=== PATIENT | female | born 1995 | race American Indian/Alaskan Native ===

== ENCOUNTER 2016-10-16 06:58 | Emergency (ER) | payer SELFPAY ==
[2016-10-16 07:54] VITALS: BP 149/97
[2016-10-16 09:03] LABS: Bilirubin,Urine NEG (Negative); Blood,Urine NEG (Negative); Ketones,Urine NEG (Negative); Leukocyte Esterase,Urine NEG (Negative); Mucus,Urine FEW /HPF; Nitrite,Urine NEG (Negative); Protein,Urine <15 mg/dL mg/dL (Negative); Urobilinogen,Urine < 2.0 mg/dL (<2.0)
--- NOTE | 2016-10-16 10:04 | Emergency Department Report ---
HPI - General Chief Complaint: Pain General Time Seen by Provider: 10/16/16 10:00 - HPI HPI: 21-year-old obese female comes in with complaint of sore throat and runny nose since yesterday. Patient also complains of pain from the waist down starting this morning. Lower back and lower leg pain. She denies any dysuria no hematuria she didn't complains of frequency and urgency with urination. She denies any nausea vomiting denies any fever. She does report that the last time she felt like that she was under stress. 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 Patient has tried no xzzi-eqt-bfwydom medication. ED Past Medical Hx - Past Medical History Hx Hypertension: Yes (NO MEDS) Hx GERD: Yes - Surgical History Past Surgical History?: No - Social History Smoking Status: Current Every Day Smoker Substance Use Type: Alcohol, Marijuana - Medications Home Medications: Home Medications Medication Instructions Recorded Confirmed Last Taken Type Ibuprofen [Motrin 800 MG tab] 800 mg PO Q8HR #30 tablet 10/16/16 Unknown Rx ED Review of Systems ROS: Stated complaint: BODY PAIN Other details as noted in HPI Physical Exam - Physical Exam Vital Signs: Vital Signs 10/16/16 07:50 Temperature 98.4 F Pulse Rate 83 Respiratory 16 Rate Blood Pressure 149/97 O2 Sat by Pulse 100 Oximetry ED Course Vital Signs 10/16/16 07:50 Temperature 98.4 F Pulse Rate 83 Respiratory 16 Rate Blood Pressure 149/97 O2 Sat by Pulse 100 Oximetry - Reevaluation(s) Reevaluation #1: 10/16/16 10:57 She reports that her pain is improved much. Critical care attestation.: If time is entered above; I have spent that time in minutes in the direct care of this critically ill patient, excluding procedure time. ED Disposition Clinical Impression: Sore throat (viral), Leg pain, bilateral, Obesity (BMI 30.0-34.9), Tobacco abuse, Tobacco abuse counseling Disposition: DISCHARGED TO HOME OR SELFCARE Is pt being admited?: No Does the pt Need Aspirin: No Condition: Stable Instructions: Analgesic/Antihistamine/Antitussive (By mouth), How to Stop Smoking (ED) Additional Instructions: Discussed the patient did take the Motrin as prescribed. For body aches and sore throat. Also discussed the patient to stop smoking. Encourage patient to walk more exercise at least 30 minutes 3 times a week. Prescriptions: Ibuprofen [Motrin 800 MG tab] 800 mg PO Q8HR #30 tablet Referrals: PRIMARY CARE, [Primary Care Provider] - 3-5 Days Forms: Work/School Release Form(ED)
[2016-10-16] MEDS: MOTRIN PO ONE (10:09)
== END 2016-10-16 11:03 | disposition home or self-care (01) ==
LOC: ED 06:58
DX: J02.8 Acute pharyngitis due to other specified organisms (principal); E66.9 Obesity, unspecified; M79.605 Pain in left leg; M79.604 Pain in right leg; I10 Essential (primary) hypertension; K21.9 Gastro-esophageal reflux disease without esophagitis; F17.210 Nicotine dependence, cigarettes, uncomplicated; F12.90 Cannabis use, unspecified, uncomplicated; Z68.34 Body mass index [BMI] 34.0-34.9, adult
CPT/HCPCS: 81001; 81025; 99283

== ENCOUNTER 2018-02-19 17:31 | Emergency (ER) | payer SELFPAY ==
[2018-02-19] MEDS ORDERED: TYLENOL PO ONE (22:03)
[2018-02-19 22:10] VITALS: BP 146/95
--- NOTE | 2018-02-20 02:33 | XRay Report ---
FINAL REPORT EXAM: XR CHEST ROUTINE 2V HISTORY: chest pain TECHNIQUE: PA and lateral views of the chest were obtained. PRIORS: None. FINDINGS: There are no focal consolidations to suggest pneumonia. No large pleural effusion. No pneumothorax. Cardiac silhouette and mediastinal structures are unremarkable. No acute osseous abnormality identified. IMPRESSION: No radiographic evidence of acute cardiopulmonary disease.
--- NOTE | 2018-02-20 03:02 | Emergency Department Report ---
- General Chief Complaint: Chest Pain Stated Complaint: N/V Time Seen by Provider: 02/20/18 01:18 Source: patient Mode of arrival: Ambulatory Limitations: No Limitations - History of Present Illness Initial Comments: Patient presents with chest pain cough for 3 weeks symptoms exacerbated by environmental stimuli Patient has history of bronchitis thyroid not taking her arthritis medicines at this time there is no fever or chills no nausea vomiting MD Complaint: cough, sore throat, rhinorrhea, nasal congestion, sinus pain Onset/Timin -: week(s) Severity: moderate Severity scale (0 -10): 4 Quality: aching Consistency: constant Improves With: nothing Worsens With: activity Context: sick contacts Associated Symptoms: fever, chills, cough, chest pain, rash - Related Data Previous Rx's Medication Instructions Recorded Last Taken Type ALBUTEROL NEB's [Proventil 0.083% 2.5 mg IH TID PRN #30 neb 02/20/18 Unknown Rx NEBS] Ibuprofen [Motrin 800 MG tab] 800 mg PO Q8HR #30 tablet 02/20/18 Unknown Rx predniSONE [Deltasone] 40 mg PO QDAY #10 tab 02/20/18 Unknown Rx Allergies Allergy/AdvReac Type Severity Reaction Status Date / Time lactose AdvReac ABD PAIN Verified 02/19/18 17:45 ED Review of Systems ROS: Stated complaint: N/V Other details as noted in HPI Constitutional: denies: chills, fever Eyes: denies: eye pain, eye discharge, vision change ENT: ear pain, dental pain, congestion Respiratory: denies: cough, shortness of breath, wheezing Cardiovascular: denies: chest pain, palpitations Endocrine: no symptoms reported Gastrointestinal: denies: abdominal pain, nausea, diarrhea, constipation, hematemesis, hematochezia Genitourinary: urgency Musculoskeletal: denies: back pain, joint swelling, arthralgia Skin: denies: rash, lesions Neurological: denies: headache, weakness, paresthesias Psychiatric: as per HPI. denies: anxiety, depression Hematological/Lymphatic: denies: easy bleeding, easy bruising ED Past Medical Hx - Past Medical History Hx Hypertension: Yes (NO MEDS) Hx GERD: Yes - Surgical History Past Surgical History?: No - Social History Smoking Status: Never Smoker Substance Use Type: None - Medications Home Medications: Home Medications Medication Instructions Recorded Confirmed Last Taken Type ALBUTEROL NEB's [Proventil 0.083% 2.5 mg IH TID PRN #30 neb 02/20/18 Unknown Rx NEBS] Ibuprofen [Motrin 800 MG tab] 800 mg PO Q8HR #30 tablet 02/20/18 Unknown Rx predniSONE [Deltasone] 40 mg PO QDAY #10 tab 02/20/18 Unknown Rx ED Physical Exam - General Limitations: No Limitations General appearance: alert, in no apparent distress - Head Head exam: Present: atraumatic, normocephalic - Eye Eye exam: Present: normal appearance, PERRL Pupils: Present: normal accommodation - ENT ENT exam: Present: normal exam, normal orophraynx, mucous membranes moist - Neck Neck exam: Present: normal inspection (25) - Respiratory Respiratory exam: Present: normal lung sounds bilaterally (he), wheezes. Absent : respiratory distress - Cardiovascular Cardiovascular Exam: Present: regular rate, normal rhythm, normal heart sounds - GI/Abdominal GI/Abdominal exam: Present: soft, normal bowel sounds - Rectal Rectal exam: Present: deferred - External exam: Present: erythema Speculum exam: Present: normal speculum exam - Extremities Exam Extremities exam: Present: normal inspection, full ROM, tenderness, normal capillary refill. Absent: pedal edema, joint swelling - Back Exam Back exam: Present: normal inspection, full ROM, muscle spasm, vertebral tenderness. Absent: tenderness, CVA tenderness (R), CVA tenderness (L), paraspinal tenderness - Neurological Exam Neurological exam: Present: alert, oriented X3, CN II-XII intact, normal gait, reflexes normal - Psychiatric Psychiatric exam: Present: normal affect, normal mood - Skin Skin exam: Present: warm, dry, intact, normal color. Absent: rash ED Course Vital Signs 02/19/18 02/19/18 17:45 22:09 Temperature 98.9 F 99.3 F Pulse Rate 84 80 Respiratory 18 20 Rate Blood Pressure 153/100 Blood Pressure 146/95 [Left] O2 Sat by Pulse 99 99 Oximetry ED Medical Decision Making - Radiology Data Radiology results: pending, report reviewed Infiltrate no opacities - Medical Decision Making This is a bronchitis and AOM will tx for same pt will follow up Critical care attestation.: If time is entered above; I have spent that time in minutes in the direct care of this critically ill patient, excluding procedure time. ED Disposition Clinical Impression: Bronchitis Disposition: DC-01 TO HOME OR SELFCARE Is pt being admited?: No Does the pt Need Aspirin: No Condition: Good Instructions: Acute Bronchitis (ED) Prescriptions: ALBUTEROL NEB's [Proventil 0.083% NEBS] 2.5 mg IH TID PRN #30 neb PRN Reason: Wheezing Ibuprofen [Motrin 800 MG tab] 800 mg PO Q8HR #30 tablet predniSONE [Deltasone] 40 mg PO QDAY #10 tab Referrals: PRIMARY CARE, [Primary Care Provider] - 3-5 Days Forms: Work/School Release Form(ED) Time of Disposition: 03:13
== END 2018-02-20 01:19 | disposition home or self-care (01) ==
LOC: ED 17:31
DX: J40 Bronchitis, not specified as acute or chronic (principal); I10 Essential (primary) hypertension; K21.9 Gastro-esophageal reflux disease without esophagitis; Z91.09 Other allergy status, other than to drugs and biological substances
CPT/HCPCS: 71046; 93005; 93010; 99283

== ENCOUNTER 2019-06-12 16:17 | Emergency (ER) | payer OTHER ==
--- NOTE | 2019-06-12 20:00 | Event Note ---
ED Screening Note ED Screening Note: lower abd pain discomfort that began this morning +urgency no dysuria no bleeding no vomiting no diarrhea no fever PMHx none no allergies to meds LNMP: 04/20/19 states she is currently 7 weeks , states she took urine preg test has not seen an OB /P:0/A:1 This initial assessment/diagnostic orders/clinical plan/treatment(s) is/are subject to change based on patients health status, clinical progression and re- assessment by fellow clinical providers in the ED. Further treatment and workup at subsequent clinical providers discretion. Patient/guardian urged not to elope from the ED as their condition may be serious if not clinically assessed and managed. Initial orders include: labs, UA, US
[2019-06-12 20:48] LABS: Basophils # (Auto) 0.1 K/mm3 (0.0-0.1); Basophils % (Auto) 0.6 % (0.0-1.8); Eosinophils # (Auto) 0.2 K/mm3 (0.0-0.4); Eosinophils % (Auto) 1.9 % (0.0-4.3); Hematocrit 35.3 % (30.3-42.9); Hemoglobin 11.7 gm/dl (10.1-14.3); Lymphocytes # (Auto) 2.8 K/mm3 (1.2-5.4); Lymphocytes % (Auto) 30.2 % (13.4-35.0); Mean Corpuscular HGB Conc 33 % (30-34); Mean Corpuscular Volume 84 fl (79-97); Monocytes # (Auto) 0.7 K/mm3 (0.0-0.8); Monocytes % (Auto) 7.1 % (0.0-7.3); Platelet Count 307 K/mm3 (140-440); Red Blood Count 4.23 M/mm3 (3.65-5.03); Red Cell Distribution Width 14.9 % (13.2-15.2)
[2019-06-12 21:14] LABS: Bilirubin,Urine NEG (Negative); Blood,Urine NEG (Negative); Color,Urine Yellow (Yellow); Mucus,Urine 3+ /HPF; Protein,Urine <15 mg/dL mg/dL (Negative)
--- NOTE | 2019-06-12 22:05 | Ultrasound Report ---
US OB <= 14 weeks fetus, US OB transvaginal INDICATION / CLINICAL INFORMATION: 7 weeks , abd pain. COMPARISON: None available. FINDINGS: Transabdominal and transvaginal imaging was performed. Intrauterine gestational sac is seen with pole and yolk sac. [place]-rump length is 8.7 mm, 6 wee ks, 6 days. heart rate is 133. Right ovary not visualized. Left ovary is unremarkable. No free fluid is seen in the pelvis. IMPRESSION: 1. Single viable intrauterine with sonographic gestational age of 6 weeks, 6 days. Signer Name: Eduardo Hayes MD Signed: 06/12/2019 10:01 PM Workstation Name: [id number]
--- NOTE | 2019-06-12 22:07 | Emergency Department Report ---
ED Female HPI - General Chief complaint: Abdominal Pain Stated complaint: 7WKS PREG/ABD PAIN Time Seen by Provider: 06/12/19 19:58 Source: patient Mode of arrival: Ambulatory Limitations: No Limitations - History of Present Illness Initial comments: lower abd pain discomfort that began this morning. No pain now. +urgency no dysuria no bleeding no vomiting no diarrhea no fever PMHx none no allergies to meds LNMP: 04/20/19 states she is currently 7 weeks , states she took urine preg test has not seen an OB /P:0/A:1 -: This morning Location: suprapubic, other (epigastric) Severity: mild Quality: sharp Consistency: intermittent Improves with: none Worsens with: none Are you Now?: Yes Last Menstrual Period: 04/20/19 EDC: 01/25/20 Associated Symptoms: denies other symptoms - Related Data Sexually active: Yes : 2 Para: 0 A: 1 Previous Rx's Medication Instructions Recorded Last Taken Type ALBUTEROL NEB's [Proventil 0.083% 2.5 mg IH TID PRN #30 neb 02/20/18 Unknown Rx NEBS] Ibuprofen [Motrin 800 MG tab] 800 mg PO Q8HR #30 tablet 02/20/18 Unknown Rx predniSONE [Deltasone] 40 mg PO QDAY #10 tab 02/20/18 Unknown Rx Vit-Fe Fumar-FA [ 1 tab PO QDAY #45 tablet 06/12/19 Unknown Rx Vitamin] Allergies Allergy/AdvReac Type Severity Reaction Status Date / Time lactose AdvReac ABD PAIN Verified 02/19/18 17:45 ED Review of Systems ROS: Stated complaint: 7WKS PREG/ABD PAIN Other details as noted in HPI ED Past Medical Hx - Past Medical History Previous Medical History?: Yes Hx Hypertension: Yes (NO MEDS) Hx GERD: Yes - Surgical History Past Surgical History?: Yes - Social History Smoking Status: Never Smoker Substance Use Type: None - Medications Home Medications: Home Medications Medication Instructions Recorded Confirmed Last Taken Type ALBUTEROL NEB's [Proventil 0.083% 2.5 mg IH TID PRN #30 neb 02/20/18 Unknown Rx NEBS] Ibuprofen [Motrin 800 MG tab] 800 mg PO Q8HR #30 tablet 02/20/18 Unknown Rx predniSONE [Deltasone] 40 mg PO QDAY #10 tab 02/20/18 Unknown Rx Vit-Fe Fumar-FA [ 1 tab PO QDAY #45 tablet 06/12/19 Unknown Rx Vitamin] ED Physical Exam - General Limitations: No Limitations General appearance: alert, in no apparent distress - Head Head exam: Present: atraumatic, normocephalic - Eye Eye exam: Present: normal appearance - ENT ENT exam: Present: mucous membranes moist - Neck Neck exam: Present: normal inspection, full ROM - Respiratory Respiratory exam: Present: normal lung sounds bilaterally. Absent: respiratory distress - Cardiovascular Cardiovascular Exam: Present: regular rate, normal rhythm. Absent: systolic murmur, diastolic murmur, rubs, gallop - GI/Abdominal GI/Abdominal exam: Present: soft, normal bowel sounds. Absent: distended, tenderness, guarding, rebound - Extremities Exam Extremities exam: Present: normal inspection - Back Exam Back exam: Present: normal inspection - Neurological Exam Neurological exam: Present: alert, oriented X3, normal gait - Psychiatric Psychiatric exam: Present: normal affect, normal mood - Skin Skin exam: Present: warm, dry, intact, normal color. Absent: rash ED Course Vital Signs 06/12/19 06/12/19 17:25 17:28 Temperature 98.5 F 98.5 F Pulse Rate 93 H 93 H Respiratory 16 16 Rate Blood Pressure 133/72 [Right] O2 Sat by Pulse 100 100 Oximetry ED Medical Decision Making - Lab Data Result diagrams: 06/12/19 20:26 - Medical Decision Making lower abd pain discomfort that began this morning. No pain now. +urgency no dysuria no bleeding no vomiting no diarrhea no fever PMHx none no allergies to meds LNMP: 04/20/19 states she is currently 7 weeks , states she took urine preg test has not seen an OB /P:0/A:1 Patient currently has no abdominal pain. Patient's ultrasound shows she 6 weeks and 6 days. Patient has a negative physical examination. Patient will be discharged home on vitamins to take daily. Instructed patient she can only take Tylenol for pain management. Instructed the patient to increase her fluid intake and follow up with a [facility] I have listed several below for her convenience. Critical care attestation.: If time is entered above; I have spent that time in minutes in the direct care of this critically ill patient, excluding procedure time. ED Disposition Clinical Impression: Abdominal pain Qualifiers: Abdominal location: epigastric Qualified Code(s): R10.13 - Epigastric pain Qualifiers: Weeks of gestation: less than 8 weeks Qualified Code(s): Z3A.01 - Less than 8 weeks gestation of Disposition: DC- TO HOME OR SELFCARE Is pt being admited?: No Does the pt Need Aspirin: No Condition: Stable Instructions: Abdominal Pain (ED) Additional Instructions: Ultrasound shows an approximate 6 weeks and 6 days . Please take vitamins daily as prescribed. Only pain medication need can take at this time is Tylenol. Please follow up with her OB provider I have listed several below for your convenience. Prescriptions: Vit-Fe Fumar-FA [ Vitamin] 1 tab PO QDAY #45 tablet Referrals: [facility] [Provider Group] - 3-5 Days [facility] [Provider Group] - 3-5 Days [facility] [place] [Provider Group] - 3-5 Days Forms: Work/School Release Form(ED)
[2019-06-12 22:33] VITALS: BP 123/80
== END 2019-06-12 22:37 | disposition home or self-care (01) ==
LOC: ED 16:17
DX: R10.13 Epigastric pain (principal); O26.891 Other specified pregnancy related conditions, first trimester; R39.15 Urgency of urination; Z3A.01 Less than 8 weeks gestation of pregnancy
CPT/HCPCS: 36415; 76801; 76817; 81001; 84702; 85025; 86900; 86901; 99284

== ENCOUNTER 2019-07-07 12:16 | Emergency (ER) | payer MEDICAID, OTHER ==
[2019-07-07 12:30] VITALS: BP 148/88
[2019-07-07 16:14] LABS: Basophils # (Auto) 0.1 K/mm3 (0.0-0.1); Basophils % (Auto) 0.8 % (0.0-1.8); Eosinophils # (Auto) 0.2 K/mm3 (0.0-0.4); Eosinophils % (Auto) 2.2 % (0.0-4.3); Hematocrit 37.3 % (30.3-42.9); Hemoglobin 12.2 gm/dl (10.1-14.3); Lymphocytes # (Auto) 2.5 K/mm3 (1.2-5.4); Lymphocytes % (Auto) 30.5 % (13.4-35.0); Mean Corpuscular HGB Conc 33 % (30-34); Mean Corpuscular Volume 84 fl (79-97); Monocytes # (Auto) 0.7 K/mm3 (0.0-0.8); Monocytes % (Auto) 8.7 % (0.0-7.3); Platelet Count 362 K/mm3 (140-440); Red Blood Count 4.45 M/mm3 (3.65-5.03); Red Cell Distribution Width 15.3 % (13.2-15.2)
[2019-07-07 16:35] LABS: BUN/Creatinine Ratio 12; Blood Urea Nitrogen 6 mg/dL (7-17); Calcium 10.2 mg/dL (8.4-10.2); Hemolysis Index 7
--- NOTE | 2019-07-07 16:44 | Emergency Department Report ---
ED HPI - General Chief complaint: Abdominal Pain Stated complaint: 10 WKS /BLEEDING/PAIN Time Seen by Provider: 07/07/19 15:39 Source: patient Mode of arrival: Ambulatory Limitations: No Limitations - History of Present Illness Initial comments: This pleasant 24-year-old A1 L0 female presents the emergency department approximately 10 weeks with a chief complaint of vaginal bleeding that started this morning. She states she wiped and saw 2 small blood clots. She states she's been having some brown spotting since. She reported initially having a little bit of abdominal cramping this morning however this has also r esolved. She has an [facility]IMMER MACHINE OPERATOR appointment tomorrow at [facility] She denies any associated fevers, chills, night sweats, headache, dizziness, blurry vision, nausea, vomiting, diarrhea, chest pain, shortness of breath or any other associated symptoms. She has past medical history acid reflux lactose intolerance. Current medications include vitamins, she denies any allergies to medications, denies any previous surgeries. - Related Data Previous Rx's Medication Instructions Recorded Last Taken Type ALBUTEROL NEB's [Proventil 0.083% 2.5 mg IH TID PRN #30 neb 02/20/18 Unknown Rx NEBS] Ibuprofen [Motrin 800 MG tab] 800 mg PO Q8HR #30 tablet 02/20/18 Unknown Rx predniSONE [Deltasone] 40 mg PO QDAY #10 tab 02/20/18 Unknown Rx Vit-Fe Fumar-FA [ 1 tab PO QDAY #45 tablet 06/12/19 Unknown Rx Vitamin] Allergies Allergy/AdvReac Type Severity Reaction Status Date / Time lactose AdvReac ABD PAIN Verified 02/19/18 17:45 ED Review of Systems ROS: Stated complaint: 10 WKS /BLEEDING/PAIN Other details as noted in HPI Comment: All other systems reviewed and negative Constitutional: denies: chills, fever Eyes: denies: eye pain, eye discharge, vision change ENT: denies: ear pain, throat pain Respiratory: denies: cough, shortness of breath, wheezing Cardiovascular: denies: chest pain, palpitations Endocrine: no symptoms reported Gastrointestinal: as per HPI, abdominal pain. denies: nausea, diarrhea Genitourinary: abnormal menses. denies: urgency, dysuria, discharge Musculoskeletal: denies: back pain, joint swelling, arthralgia Skin: denies: rash, lesions Neurological: denies: headache, weakness, paresthesias Psychiatric: denies: anxiety, depression Hematological/Lymphatic: denies: easy bleeding, easy bruising ED Past Medical Hx - Past Medical History Previous Medical History?: No Hx Hypertension: Yes (NO MEDS) Hx GERD: Yes - Surgical History Past Surgical History?: No - Social History Smoking Status: Never Smoker Substance Use Type: None - Medications Home Medications: Home Medications Medication Instructions Recorded Confirmed Last Taken Type ALBUTEROL NEB's [Proventil 0.083% 2.5 mg IH TID PRN #30 neb 02/20/18 Unknown Rx NEBS] Ibuprofen [Motrin 800 MG tab] 800 mg PO Q8HR #30 tablet 02/20/18 Unknown Rx predniSONE [Deltasone] 40 mg PO QDAY #10 tab 02/20/18 Unknown Rx Vit-Fe Fumar-FA [ 1 tab PO QDAY #45 tablet 06/12/19 Unknown Rx Vitamin] ED Physical Exam - General Limitations: No Limitations General appearance: alert, in no apparent distress - Head Head exam: Present: atraumatic, normocephalic - Eye Eye exam: Present: normal appearance, PERRL, EOMI Pupils: Present: normal accommodation - ENT ENT exam: Present: normal exam, normal orophraynx, mucous membranes moist - Neck Neck exam: Present: normal inspection, full ROM. Absent: tenderness, meningismus - Respiratory Respiratory exam: Present: normal lung sounds bilaterally. Absent: respiratory distress, wheezes, rhonchi, stridor - Cardiovascular Cardiovascular Exam: Present: regular rate, normal rhythm, normal heart sounds. Absent: systolic murmur, diastolic murmur, rubs, gallop - GI/Abdominal GI/Abdominal exam: Present: soft, normal bowel sounds. Absent: distended, tenderness, guarding, rebound, rigid - Extremities Exam Extremities exam: Present: normal inspection, full ROM. Absent: tenderness, normal capillary refill - Back Exam Back exam: Present: normal inspection, full ROM. Absent: tenderness, CVA tenderness (R), CVA tenderness (L) - Neurological Exam Neurological exam: Present: alert, oriented X3, CN II-XII intact - Psychiatric Psychiatric exam: Present: normal affect, normal mood - Skin Skin exam: Present: warm, dry, intact, normal color. Absent: rash ED Course Vital Signs 07/07/19 12:22 Temperature 98.3 F Pulse Rate 96 H Respiratory 16 Rate Blood Pressure 148/88 O2 Sat by Pulse 93 Oximetry ED Medical Decision Making - Lab Data Result diagrams: 07/07/19 15:53 07/07/19 15:53 Lab Results 07/07/19 07/07/19 07/07/19 Range/Units 15:53 15:53 15:53 WBC 8.2 (4.5-11.0) K/mm3 RBC 4.45 (3.65-5.03) M/mm3 Hgb 12.2 (10.1-14.3) gm/dl Hct 37.3 (30.3-42.9) % MCV 84 (79-97) fl MCH 28 (28-32) pg MCHC 33 (30-34) % RDW 15.3 H (13.2-15.2) % Plt Count 362 (140-440) K/mm3 Lymph % (Auto) 30.5 (13.4-35.0) % Daw[place] % (Auto) 8.7 H (0.0-7.3) % Eos % (Auto) 2.2 (0.0-4.3) % Baso % (Auto) 0.8 (0.0-1.8) % Lymph # 2.5 (1.2-5.4) K/mm3 Dawes # 0.7 (0.0-0.8) K/mm3 Eos # 0.2 (0.0-0.4) K/mm3 Baso # 0.1 (0.0-0.1) K/mm3 Seg Neutrophils % 57.8 (40.0-70.0) % Seg Neutrophils # 4.8 (1.8-7.7) K/mm3 Sodium 134 L (137-145) mmol/L Potassium 3.5 L (3.6-5.0) mmol/L Chloride 98.6 (98-107) mmol/L Carbon Dioxide 20 L (22-30) mmol/L Anion Gap 19 mmol/L BUN 6 L (7-17) mg/dL Creatinine 0.5 L (0.7-1.2) mg/dL Estimated GFR > 60 ml/min BUN/Creatinine Ratio 12 % Glucose 92 (65-100) mg/dL Calcium 10.2 (8.4-10.2) mg/dL HCG, Quant (0-4) mIU/mL Blood Type O POSITIVE Ord Rhogam Gestat Weeks Rh pos WEEKS 07/07/19 Range/Units 15:53 WBC (4.5-11.0) K/mm3 RBC (3.65-5.03) M/mm3 Hgb (10.1-14.3) gm/dl Hct (30.3-42.9) % MCV (79-97) fl MCH (28-32) pg MCHC (30-34) % RDW (13.2-15.2) % Plt Count (140-440) K/mm3 Lymph % (Auto) (13.4-35.0) % Dawes % (Auto) (0.0-7.3) % Eos % (Auto) (0.0-4.3) % Baso % (Auto) (0.0-1.8) % Lymph # (1.2-5.4) K/mm3 Dawes # (0.0-0.8) K/mm3 Eos # (0.0-0.4) K/mm3 Baso # (0.0-0.1) K/mm3 Seg Neutrophils % (40.0-70.0) % Seg Neutrophils # (1.8-7.7) K/mm3 Sodium (137-145) mmol/L Potassium (3.6-5.0) mmol/L Chloride (98-107) mmol/L Carbon Dioxide (22-30) mmol/L Anion Gap mmol/L BUN (7-17) mg/dL Creatinine (0.7-1.2) mg/dL Estimated GFR ml/min BUN/Creatinine Ratio % Glucose (65-100) mg/dL Calcium (8.4-10.2) mg/dL HCG, Quant 40204 H (0-4) mIU/mL Blood Type Ord Rhogam Gestat Weeks WEEKS - Radiology Data Radiology results: report reviewed Ultrasound Report Signed Patient: VICTOR M BERNSTEIN MR#: [id number] : 1995 Acct:[id number] Age/Sex: 24 / F ADM Date: 07/07/19 Loc: ED Attending Dr: Ordering Physician: RYLIE CAROLINA Date of Service: 07/07/19 Procedure(s): US OB transvaginal Accession Number(s): [id number] cc: RYLIE CAROLINA ULTRASOUND OBSTETRIC INDICATION: 10 weeks with vaginal bleeding. TECHNIQUE: Transabdominal and Transvaginal. COMPARISON: OB ultrasound from 06/12/2019. FINDINGS: GESTATIONAL SAC: Well-defined oval shape and intrauterine in location. YOLK SAC: No significant abnormality. EMBRYO/FETUS: No significant abnormality. - [place]-Rump Length = 2.66 cm = 10 weeks, 0 day(s). - Heart Rate = 168 beats per minute. ADNEXA: No significant abnormality of the right ovary. The left ovary is obscured. FREE FLUID: None. ADDITIONAL FINDINGS: None. IMPRESSION: 1. Single, living intrauterine with estimated sonographic age of 10 weeks, 0 day(s). 2. No acute abnormality of the pelvis. Signer Name: Arnoldo Ramirez MD Signed: 07/07/2019 5:42 PM Workstation Name: [id number] Transcribed By: JAZ Dictated By: Arnoldo Ramirez MD Electronically Authenticated By: Arnoldo Ramirez MD Signed Date/Time: 07/07/19 7832 - Medical Decision Making Patient nontoxic in no acute distress. Vitals are stable. She is hemodynamically stable. HCG is elevated in ultrasound shows a viable intrauterine with no complications. This rules out ectopic . Patient had a benign abdominal exam and again labs were normal. I will discharge in stable condition with outpatient TRIMMER MACHINE OPERATOR follow-up which is tomorrow. She was instructed to return emergently changing worsening symptoms. Recommend continuing vitamins and recommended pelvic rest, nothing in the vagina, no sex no tampons, and no physical activity until cleared by the TRIMMER MACHINE OPERATOR. She was understanding of the diagnosis, treatment plan and follow-up instructions in all of her questions were answered. - Differential Diagnosis ectopic, threatened misscarriage, UTI Critical care attestation.: If time is entered above; I have spent that time in minutes in the direct care of this critically ill patient, excluding procedure time. ED Disposition Clinical Impression: Threatened miscarriage Disposition: DC-01 TO HOME OR SELFCARE Is pt being admited?: No Condition: Stable Instructions: Threatened Miscarriage (ED) Referrals: PRIMARY CARE, [Primary Care Provider] - 3-5 Days Forms: Work/School Release Form(ED) Time of Disposition: 19:29
--- NOTE | 2019-07-07 17:46 | Ultrasound Report ---
ULTRASOUND OBSTETRIC INDICATION: 10 weeks with vaginal bleeding. TECHNIQUE: Transabdominal and Transvaginal. COMPARISON: OB ultrasound from 06/12/2019. FINDINGS: GESTATIONAL SAC: Well-defined oval shape and intrauterine in location. YOLK SAC: No significant abnormality. EMBRYO/FETUS: No significant abnormality. - [place]-Rump Length = 2.66 cm = 10 weeks, 0 day(s). - Heart Rate = 168 beats per minute. ADNEXA: No significant abnormality of the right ovary. The left ovary is obscured. FREE FLUID: None. ADDITIONAL FINDINGS: None. IMPRESSION: 1. Single, living intrauterine with estimated sonographic age of 10 weeks, 0 day(s). 2. No acute abnormality of the pelvis. Signer Name: Arnoldo Ramirez MD Signed: 07/07/2019 5:42 PM Workstation Name: [id number]
--- NOTE | 2019-07-07 17:46 | Ultrasound Report ---
ULTRASOUND OBSTETRIC INDICATION: 10 weeks with vaginal bleeding. TECHNIQUE: Transabdominal and Transvaginal. COMPARISON: OB ultrasound from 06/12/2019. FINDINGS: GESTATIONAL SAC: Well-defined oval shape and intrauterine in location. YOLK SAC: No significant abnormality. EMBRYO/FETUS: No significant abnormality. - [place]-Rump Length = 2.66 cm = 10 weeks, 0 day(s). - Heart Rate = 168 beats per minute. ADNEXA: No significant abnormality of the right ovary. The left ovary is obscured. FREE FLUID: None. ADDITIONAL FINDINGS: None. IMPRESSION: 1. Single, living intrauterine with estimated sonographic age of 10 weeks, 0 day(s). 2. No acute abnormality of the pelvis. Signer Name: Arnoldo Ramirez MD Signed: 07/07/2019 5:42 PM Workstation Name: [id number]
[2019-07-07 19:30] LABS: Bilirubin,Urine NEG (Negative); Blood,Urine NEG (Negative); Color,Urine Straw (Yellow); Mucus,Urine FEW /HPF; Protein,Urine <15 mg/dL mg/dL (Negative); Urobilinogen,Urine < 2.0 mg/dL (<2.0)
== END 2019-07-07 19:40 | disposition home or self-care (01) ==
LOC: ED 12:16
DX: O20.0 Threatened abortion (principal); I10 Essential (primary) hypertension; K21.9 Gastro-esophageal reflux disease without esophagitis; Z79.1 Long term (current) use of non-steroidal anti-inflammatories (NSAID); Z79.899 Other long term (current) drug therapy; Z88.8 Allergy status to other drugs, medicaments and biological substances; Z3A.10 10 weeks gestation of pregnancy
CPT/HCPCS: 36415; 76801; 76817; 80048; 81001; 84702; 85025; 86900; 86901

== ENCOUNTER 2019-11-01 14:26 | Outpatient (CLI) | payer MEDICAID ==
[2019-11-01 14:59] VITALS: BP 112/65
[2019-11-01] MEDS ORDERED: LACTATED RINGERS 500 ML IV ONE (15:03)
[2019-11-01] MEDS ORDERED: ACETAMINOPHEN 500 MG TAB PO ONE (15:29)
[2019-11-01 16:17] LABS: Bacteria,Urine 2+ /HPF (Negative); Bilirubin,Urine NEG (Negative); Blood,Urine NEG (Negative); Color,Urine Amber (Yellow); Mucus,Urine 3+ /HPF; Protein,Urine <15 mg/dL mg/dL (Negative); Urobilinogen,Urine < 2.0 mg/dL (<2.0)
--- NOTE | 2019-11-01 20:20 | Event Note ---
Date: 11/01/19 (Abdominal and vaginal pressure) Pt is a 24 y.o. @ 27 + wks who presented to triage with c/o vaginal pain and pressure. States that she was at work when the pain and pressure started. Denies vag bleeding, LOF. Cervical exam 3. No contractions noted on monitor. Urine was sent and revealed UTI. Tylenol and IV fluids given, which patient stat es brought some relief. Will send Rx to pharmacy for UTI. Discussed labor precautions and follow up in the office this week. Aware of Rx sent to pharmacy. Pt was discharged home in stable condition and ambulatory.
== END 2019-11-01 18:39 | disposition home or self-care (01) ==
LOC: TRG 14:26 → APU 14:27 → TRG 18:39
PROVIDERS: ATTEND Obstetrics & Gynecology
DX: O26.892 Other specified pregnancy related conditions, second trimester (principal); R10.2 Pelvic and perineal pain; Z87.891 Personal history of nicotine dependence; Z3A.27 27 weeks gestation of pregnancy
CPT/HCPCS: 59025; 81001; 87086; J7120; 96360

== ENCOUNTER 2020-01-24 20:06 | Inpatient (IN) | payer MEDICAID ==
--- NOTE | 2020-01-24 21:54 | History and Physical Report ---
History of Present Illness Date of admission: 01/24/20 20:06 Chief complaint: here for IOL History of present illness: Pt here for scheduled IOL due to IUGR and GDM diet controlled =. also complicated by obesity. EDC Calculations LMP: 01/25/2020 EDC Confirmation: 01/25/2020 Gestational Age: 11 2/7 weeks Past History : 2 Term Births: 0 Premature Births: 0 Living Children: 0 Para: 0 Mult. Births: 0 Prev : 0 Aborta: 0 Elect. Ab: 0 Spont. Ab: 1 Ectopics: 0 Past Medical History: Reviewed history and no changes required: Negative Past Medical History Past Surgical History: Reviewed history and no changes required: Abdominal Surgery: Had a biopsy on stomach that came back as normal? Past Medical History Anesthesia Complications: negative Anemia: negative Autoimmune Disorder: negative Bleeding Disorder: negative Blood Transfusions: negative Breast Disease: negative Diabetes: negative Heart Disease: negative Hypertension: negative Hepatitis/Liver Disease: negative Kidney Disease/UTI: negative Neurologic/Epilepsy/Migraines: negative Phlebitis/Varicosities: negative Psychiatric: negative Pulmonary Disease/Asthma: negative Thyroid Disease: negative Hospitalizations: negative Surgery (Non-nurse infection control): Abdominal Surgery: Had a biopsy on stomach that came back as normal? Abnormal PAP: negative ALMA Exposure: negative Infertility: negative Uterine Anomaly: negative Uterine Surgery (not C/S): negative Other Gynecologic Problems: negative Infection History Hx of STD: none HIV Risk Eval: low risk Hepatitis B Risk Eval: low risk Personal hx. of genital herpes: no Partner hx. of genital herpes: no Rash, Viral, or Febrile illness since last LMP? no Varicella/Chicken Pox Status: Unknown TB Risk: no Genetic History Congenital Heart Defect: Mom: no Dad: unknown Rachel Disease: Mom: no Dad: unknown Thalassemia Mom: no Dad: unknown Neural Tube Defect Mom: no Dad: unknown Down's Syndrome Mom: no Dad: unknown Kenneth-Sachs Mom: no Dad: unknown Sickle Cell Disease/Trait Mom: no Dad: unknown Hemophilia Mom: no Dad: unknown Muscular Dystrophy Mom: no Dad: unknown Cystic Fibrosis Mom: no Dad: unknown Micheline Chorea Mom: no Dad: unknown Mental Retardation Mom: no Dad: unknown Fragile X Mom: no Dad: unknown Other Genetic/Chromosomal Disorder Mom: no Dad: unknown Child w/other defect Mom: no Dad: unknown Enviromental Exposures Xray Exposure: no Medication, drug, or alcohol use since LMP: no Chemical/Other Exposure: no Exposure to Cat Liter: no Hx of Parvovirus (Fifth Disease): no Occupational Exposure to Children: none Active Medications: None Current Allergies: No known allergies Past History Past Medical History: other (GDM; OBESITY) Past Surgical History: other (SEE HPI) DIRECTOR OF SUSTAINABILITY History: other (SEE HPI) Family/Genetic History: other (SEE HPI) Social history: single - Obstetrical History Expected Date of Delivery: 01/25/20 Actual Gestation: 39 Week(s) 6 Day(s) : 3 Medications and Allergies Allergies Allergy/AdvReac Type Severity Reaction Status Date / Time No Known Allergies Allergy Unverified 01/24/20 21:35 Home Medications Medication Instructions Recorded Confirmed Last Taken Type RX: ALBUTEROL NEB's [Proventil 2.5 mg IH TID PRN #30 neb 02/20/18 Unknown Rx 0.083% NEBS] RX: Ibuprofen [Motrin 800 MG tab] 800 mg PO Q8HR #30 tablet 02/20/18 Unknown Rx RX: predniSONE [Deltasone] 40 mg PO QDAY #10 tab 02/20/18 Unknown Rx Vit-Fe Fumar-FA [ 1 tab PO QDAY #45 tablet 06/12/19 01/22/20 Rx Vitamin] - Vital Signs Vital signs: Vital Signs Temp Pulse Resp BP 98.4 F 99 H 18 123/58 01/24/20 20:45 01/24/20 20:45 01/24/20 20:45 01/24/20 20:45 Temp Pulse Resp BP Pulse Ox 98.4 F 99 H 18 123/58 01/24/20 20:45 01/24/20 20:59 01/24/20 20:45 01/24/20 20:59 Results All other labs normal. Assessment and Plan - Patient Problems (1) 39 weeks gestation of Current Visit: Yes Status: Acute (2) GDM (gestational diabetes mellitus) Current Visit: Yes Status: Acute Qualifiers: Gestational diabetes mellitus control: diet-controlled Trimester: third trimester Qualified Code(s): O24.410 - Gestational diabetes mellitus in , diet controlled Plan to address problem: -ADMIT -BEGIN SERIAL IOL (3) IUGR (intrauterine growth restriction) affecting care of mother Current Visit: Yes Status: Acute Qualifiers: Fetus number: single or unspecified fetus Trimester: third trimester Qualified Code(s): O36.5930 - Maternal care for other known or suspected poor growth, third trimester, not applicable or unspecified Plan to address problem: -ADMIT -BEGIN SERIAL IOL (4) Morbidly obese Current Visit: Yes Status: Acute
[2020-01-24] MEDS ORDERED: AMPICILLIN/NS 2 GM/100 ML 2 GM/100 ML BAG IV ONE (22:06)
[2020-01-24] MEDS ORDERED: TERBUTALINE 1 MG/1 ML INJ SUB-Q PRN (22:06)
[2020-01-24] MEDS ORDERED: DINOPROSTONE 10 MG VAG SUPP VG ONE (22:06)
[2020-01-24] MEDS ORDERED: LIDOCAINE (2%) 20 MG/1 ML VIAL 20 ML MDV INFILTRATI ONE (22:06)
[2020-01-24] MEDS ORDERED: ONDANSETRON 4 MG/2 ML INJ IV PRN (22:06)
[2020-01-24] MEDS ORDERED: MINERAL OIL 30 ML ORAL LIQD PO PRN (22:06)
[2020-01-24] MEDS ORDERED: ePHEDrine SULFATE 50 MG/1 ML INJ IV PRN (22:06)
[2020-01-24] MEDS ORDERED: TERBUTALINE 1 MG/1 ML INJ IVP PRN (22:06)
[2020-01-24] MEDS ORDERED: ZOLPIDEM 5 MG TAB PO PRN (22:15)
--- NOTE | 2020-01-24 22:25 | Ultrasound Report ---
ULTRASOUND OBSTETRIC LIMITED INDICATION / CLINICAL INFORMATION: Cannot palpate head. Clinical Gestational Age (GA): 38 weeks 5 days COMPARISON: Ultrasound OB transvaginal 07/07/2019 FINDINGS: HEART RATE (beats per minute): 134 AMNIOTIC FLUID INDEX: Not evaluated PRESENTATION: Cephalic. ADDITIONAL FINDINGS: None. IMPRESSION: 1. Live funez intrauterine with cephalic presentation. Signer Name: Tom Solis MD Signed: 01/24/2020 10:21 PM Workstation Name: [id number]
[2020-01-24 22:57] LABS: Hematocrit 34.5 % (30.3-42.9); Hemoglobin 11.3 gm/dl (10.1-14.3); Mean Corpuscular HGB Conc 33 % (30-34); Mean Corpuscular Volume 81 fl (79-97); Platelet Count 290 K/mm3 (140-440); Red Blood Count 4.23 M/mm3 (3.65-5.03); Red Cell Distribution Width 17.1 % (13.2-15.2)
[2020-01-24] MEDS ORDERED: OXYTOCIN 20 UNIT/1000ML DRIP 20 UNITS/1,000 ML BAG IV SCH (23:00)
--- NOTE | 2020-01-25 07:19 | Progress Note ---
Assessment and Plan @ 40 weeks Day #1 IOL for IUGR/GDM diet controlled. Cervidil in place due to be removed @ 1130. POC BS ordered. Diet ordered. Pt resting. States ctx are increasing freq and intensity. All questions addressed. Both pt and SO understand serial IOL and it may take several days. Subjective - Subjective Date of service: 01/25/20 ("Can I please eat?") Principal diagnosis: Day #1 IOL IUGR/GDM/MO 40w0d Patient reports: movement normal, contractions (increasing intensity) Objective - Vital Signs Vital Signs: Vital Signs - 12hr 01/24/20 01/24/20 01/25/20 20:45 20:59 01:03 Temperature 98.4 F Pulse Rate 99 H 99 H 90 Respiratory 18 Rate Blood Pressure 123/58 137/67 Blood Pressure 123/58 [Right] 01/25/20 01/25/20 04:30 06:41 Temperature 98.3 F Pulse Rate 96 H Respiratory 18 Rate Blood Pressure 116/60 Blood Pressure [Right] - Exam Breasts: deferred Cardiovascular: Regular rate Lungs: Normal air movement Abdomen: Present: normal appearance, soft. Absent: distention, tenderness Uterus: Present: normal FHR: auscultation normal Uterine Contraction Monitor Mode: Palpation Uterine Contraction Pattern: Irregular Uterine Tone Measurement Phase: Resting Uterine Contraction Intensity: Mild Extremities: edema Deep Tendon Reflex Grade: Normal +2 - Labs Labs: Abnormal Labs 01/24/20 20:45 MCH 27 L RDW 17.1 H Laboratory Results - last 24 hr 01/24/20 01/24/20 20:45 20:45 WBC 7.2 RBC 4.23 Hgb 11.3 Hct 34.5 MCV 81 MCH 27 L MCHC 33 RDW 17.1 H Plt Count 290 Blood Type O POSITIVE Antibody Screen Negative
--- NOTE | 2020-01-25 12:38 | Progress Note ---
Assessment and Plan @ 40 weeks Day #1 IOL for IUGR/GDM diet controlled. Cervidil removed at 1130. POC BS ordered. Pt eating and will shower. States ctx decreased in freq and intensity. All questions addressed. Plan: Start pitocin titration as ordered by 1330, Continue POC FSBS as ordered. COntinuous EFM and SVE after Shower completed Subjective - Subjective Date of service: 01/25/20 (Shower and meal post cerividil) Principal diagnosis: Day #1 IOL IUGR/GDM/MO 40w0d Patient reports: movement normal, contractions (increasing intensity) Objective - Vital Signs Vital Signs: Vital Signs - 12hr 01/25/20 01/25/20 01/25/20 01:03 04:30 06:41 Temperature 98.3 F Pulse Rate 90 96 H Respiratory 18 Rate Blood Pressure 137/67 116/60 Blood Pressure [Right] 01/25/20 01/25/20 08:50 08:52 Temperature 98.4 F Pulse Rate 88 88 Respiratory 18 Rate Blood Pressure 124/64 Blood Pressure 124/64 [Right] - Exam Breasts: normal Cardiovascular: Regular rate Lungs: Normal air movement Abdomen: Present: normal appearance, soft Uterus: Present: normal FHR: category 1 Uterine Contraction Monitor Mode: External Uterine Contraction Pattern: Regular Uterine Tone Measurement Phase: Resting Uterine Contraction Intensity: Moderate Extremities: normal Deep Tendon Reflex Grade: Normal +2 - Labs Labs: Abnormal Labs 01/24/20 20:45 MCH 27 L RDW 17.1 H Laboratory Results - last 24 hr 01/24/20 01/24/20 01/25/20 20:45 20:45 07:45 WBC 7.2 RBC 4.23 Hgb 11.3 Hct 34.5 MCV 81 MCH 27 L MCHC 33 RDW 17.1 H Plt Count 290 POC Glucose 81 Blood Type O POSITIVE Antibody Screen Negative
[2020-01-25] MEDS ORDERED: AMPICILLIN/NS 2 GM/100 ML 2 GM/100 ML BAG IV ONE (14:11)
[2020-01-25] MEDS: LACTATED RINGERS 1,000 ML IV SCH (14:23)
[2020-01-25] MEDS: OXYTOCIN DRIP 30 UNITS/500 ML BAG IV SCH ×3 (14:24→16:32)
--- NOTE | 2020-01-25 16:17 | Progress Note ---
Assessment and Plan A: no cervical change. SVE closed/50/-4. Cat I tracing. irregular contractions on 8mu pitocin. Intact membranes. VSS stable, Last FSBS 87mg/dl P: Discontinue pitocin titration. Have dinner. May get up to shower and ambulate in room. Place Cervidil @ 7pm followed by bedrest for 2 hrs. Continue FSBS per orders. Patient and support person agrees with plan. Subjective - Subjective Date of service: 01/25/20 (Pitocin titration) Principal diagnosis: Day #1 IOL IUGR/GDM/MO 40w0d Patient reports: movement normal, contractions ([place] lying in bed, reapplied. Ctxs now recording) Objective - Vital Signs Vital Signs: Vital Signs - 12hr 01/25/20 01/25/20 01/25/20 04:30 06:41 08:50 Temperature 98.3 F Pulse Rate 96 H 88 Respiratory 18 Rate Blood Pressure 116/60 124/64 Blood Pressure [Right] 01/25/20 01/25/20 01/25/20 08:52 14:45 15:49 Temperature 98.4 F 98.6 F Pulse Rate 88 98 H 92 H Respiratory 18 18 Rate Blood Pressure 120/66 122/63 Blood Pressure 124/64 122/63 [Right] - Exam Breasts: deferred, normal Cardiovascular: Regular rate Lungs: Normal air movement Abdomen: Present: normal appearance, soft Uterus: Present: normal FHR: category 1 Uterine Contraction Monitor Mode: External Cervical Dilatation: 1 (internal os closed) Cervical Effacement Percentage: 50 station: -4 Uterine Contraction Pattern: Irregular (pitocin @8 mu) Uterine Tone Measurement Phase: Resting Uterine Contraction Intensity: Mild Extremities: edema Deep Tendon Reflex Grade: Normal +2 - Labs Labs: Abnormal Labs 01/24/20 20:45 MCH 27 L RDW 17.1 H Laboratory Results - last 24 hr 01/24/20 01/24/20 01/25/20 20:45 20:45 07:45 WBC 7.2 RBC 4.23 Hgb 11.3 Hct 34.5 MCV 81 MCH 27 L MCHC 33 RDW 17.1 H Plt Count 290 POC Glucose 81 Blood Type O POSITIVE Antibody Screen Negative 01/25/20 15:18 WBC RBC Hgb Hct MCV MCH MCHC RDW Plt Count POC Glucose 97 Blood Type Antibody Screen
[2020-01-25] MEDS ORDERED: DINOPROSTONE 10 MG VAG SUPP VG ONE (19:00)
--- NOTE | 2020-01-25 21:34 | Progress Note ---
Assessment and Plan A: Cervidil in place, bedrest following insertion complete. Cat I tracing. Irregular contractions. VSS. Patient comfortable P: Continuous monitoring during cervidil induction. FSBS as ordered. Will reassess cervix at time of cervidil removal or as needed. Subjective - Subjective Date of service: 01/25/20 (cervidil in) Principal diagnosis: Day #1 IOL IUGR/GDM/MO 40w0d Patient reports: movement normal, contractions ([place] lying in bed, reapplied. Ctxs now recording) Objective - Vital Signs Vital Signs: Vital Signs - 12hr 01/25/20 01/25/20 14:45 15:49 Temperature 98.6 F Pulse Rate 98 H 92 H Respiratory 18 Rate Blood Pressure 120/66 122/63 Blood Pressure 122/63 [Right] - Exam Breasts: deferred Cardiovascular: Regular rate Lungs: Normal air movement Abdomen: Present: normal appearance, soft Uterus: Present: normal FHR: category 1 Uterine Contraction Monitor Mode: External Uterine Contraction Pattern: Irregular Uterine Tone Measurement Phase: Resting Uterine Contraction Intensity: Mild Extremities: normal Deep Tendon Reflex Grade: Normal +2 - Labs Labs: Abnormal Labs 01/24/20 20:45 MCH 27 L RDW 17.1 H Laboratory Results - last 24 hr 01/24/20 01/24/20 01/25/20 20:45 20:45 07:45 WBC 7.2 RBC 4.23 Hgb 11.3 Hct 34.5 MCV 81 MCH 27 L MCHC 33 RDW 17.1 H Plt Count 290 POC Glucose 81 Blood Type O POSITIVE Antibody Screen Negative 01/25/20 15:18 WBC RBC Hgb Hct MCV MCH MCHC RDW Plt Count POC Glucose 97 Blood Type Antibody Screen
[2020-01-26] MEDS: AMPICILLIN/NS 1 GM/50 ML 1 GM/50 ML BAG IV SCH ×7 (02:00→22:00)
--- NOTE | 2020-01-26 06:58 | Progress Note ---
Assessment and Plan A: Cervidil # 2 removed, SVE , Cat I tracing, membranes intact P: May shower and have breakfast. Pitocin titration to start @ 0900 with con tinuous monitoring. Subjective - Subjective Date of service: 01/26/20 (patient resting) Principal diagnosis: Day #2 IOL IUGR/GDM/MO 40w0d Patient reports: movement normal, contractions (toco removed by patient) Objective - Vital Signs Vital Signs: Vital Signs - 12hr 01/26/20 01/26/20 04:50 05:00 Temperature 98.0 F Pulse Rate 92 H Blood Pressure 131/77 - Exam Breasts: deferred Cardiovascular: Regular rate Lungs: Normal air movement Abdomen: Present: normal appearance, soft. Absent: distention, tenderness Uterus: Present: normal FHR: auscultation normal, category 1 Uterine Contraction Monitor Mode: External Cervical Dilatation: 0 Cervical Effacement Percentage: 50 station: -3 Uterine Contraction Pattern: Irregular Uterine Tone Measurement Phase: Resting Uterine Contraction Intensity: Mild Extremities: normal Deep Tendon Reflex Grade: Normal +2 - Labs Labs: Abnormal Labs 01/24/20 20:45 MCH 27 L RDW 17.1 H Laboratory Results - last 24 hr 01/25/20 01/25/20 01/26/20 07:45 15:18 01:03 POC Glucose 81 97 76
[2020-01-26] MEDS ORDERED: miSOPROStol 25 MCG TAB VG ONE (09:06)
--- NOTE | 2020-01-26 09:52 | Event Note ---
Date: 01/26/20 (Plan discussed with pt) Discussed plan with patient. Will order cytotec, first dose to be given PO. RN and pt aware. Will continue to monitor.
[2020-01-26] MEDS ORDERED: miSOPROStol 25 MCG TAB VG SCH (14:20)
[2020-01-26] MEDS: LACTATED RINGERS 1,000 ML IV SCH ×2 (14:38→22:01)
--- NOTE | 2020-01-26 14:53 | Progress Note ---
Assessment and Plan A: 24 y.o. @ 40+ wks, IOL for GDM. Cervical exam /-3. P: Continue with IOL. Cytotec placed. Monitor maternal and status. Subjective - Subjective Date of service: 01/26/20 (Cytotec placed) Principal diagnosis: Day #2 IOL IUGR/GDM/MO 40w0d Objective - Vital Signs Vital Signs: Vital Signs - 12hr 01/26/20 01/26/20 01/26/20 04:50 05:00 07:54 Temperature 98.0 F Pulse Rate 92 H 92 H Blood Pressure 131/77 132/66 01/26/20 01/26/20 01/26/20 07:55 09:50 10:20 Temperature 98.3 F Pulse Rate 90 95 H Blood Pressure 117/66 114/64 01/26/20 01/26/20 01/26/20 10:51 11:20 11:50 Temperature Pulse Rate 81 89 92 H Blood Pressure 123/72 113/62 109/67 01/26/20 01/26/20 12:24 12:29 Temperature 98.5 F Pulse Rate 91 H Blood Pressure 132/63 - Exam Breasts: deferred Cardiovascular: Regular rate Lungs: Normal air movement Abdomen: Present: normal appearance, soft Vulva: both: normal Uterus: Present: normal FHR: category 1 Uterine Contraction Monitor Mode: External Cervical Dilatation: 1 (Cytotec placed) Cervical Effacement Percentage: 40 station: -3 Uterine Contraction Pattern: Absent Uterine Tone Measurement Phase: Resting Extremities: normal Deep Tendon Reflex Grade: Normal +2 - Labs Labs: Abnormal Labs 01/24/20 20:45 MCH 27 L RDW 17.1 H Laboratory Results - last 24 hr 01/25/20 01/26/20 15:18 01:03 POC Glucose 97 76
[2020-01-26] MEDS ORDERED: OXYTOCIN DRIP 30 UNITS/500 ML BAG IV SCH (20:00)
--- NOTE | 2020-01-26 22:41 | Ultrasound Report ---
ULTRASOUND OBSTETRIC LIMITED INDICATION / CLINICAL INFORMATION: presentation. Clinical Gestational Age (GA): 39.0 weeks.days COMPARISON: Ultrasound dated 08/24/19 FINDINGS: HEART RATE (beats per minute): 129 AMNIOTIC FLUID INDEX (cm) = not evaluated (normal = 7-24 cm) PRESENTATION: Cephalic. ADDITIONAL FINDINGS: None. IMPRESSION: 1. Cephalic presentation, unchanged since prior study. Signer Name: Ruby Price MD Signed: 01/26/2020 10:36 PM Workstation Name: [id number]
[2020-01-27] MEDS: AMPICILLIN/NS 1 GM/50 ML 1 GM/50 ML BAG IV SCH ×8 (01:50→16:45)
--- NOTE | 2020-01-27 05:43 | Event Note ---
Date: 01/27/20 (Per RN pt sleep) Per the RN, pt states mild ctxs, but not feeling them. Pitocin was started last night, low dose, and is now at 6mu. FHR strip category 1. Will continue to monitor maternal and status.
--- NOTE | 2020-01-27 06:14 | Progress Note ---
Assessment and Plan Pt resting. Will plan to continue pitocin per protocol. Pt aware to only have clear liquids. VSS Ctx q4-6 on 6mu pit. Day #3 IOL for IUGR/GDM SVE defered @ this time. Subjective - Subjective Date of service: 01/27/20 (pt resting POC discussed with pt and her sister) Principal diagnosis: Day #3 IOL IUGR/GDM/MO 40w2d Patient reports: movement normal, contractions Objective - Vital Signs Vital Signs: Vital Signs - 12hr 01/26/20 01/26/20 01/26/20 19:17 19:58 20:18 Temperature 98.7 F Pulse Rate 89 95 H Respiratory 17 Rate Blood Pressure 140/78 129/75 O2 Sat by Pulse Oximetry 01/26/20 01/26/20 01/26/20 21:18 22:18 23:19 Temperature Pulse Rate 90 93 H 90 Respiratory Rate Blood Pressure 121/65 119/72 133/63 O2 Sat by Pulse Oximetry 01/27/20 01/27/20 01/27/20 00:14 00:15 00:19 Temperature 98.5 F Pulse Rate 87 89 Respiratory Rate Blood Pressure 141/72 116/57 O2 Sat by Pulse 16 L Oximetry 01/27/20 01/27/20 01/27/20 01:20 02:19 03:19 Temperature Pulse Rate 83 97 H 90 Respiratory Rate Blood Pressure 140/86 130/78 112/57 O2 Sat by Pulse Oximetry 01/27/20 01/27/20 01/27/20 04:07 04:08 04:18 Temperature 98.7 F Pulse Rate 87 93 H Respiratory 17 Rate Blood Pressure 130/67 133/67 O2 Sat by Pulse Oximetry 01/27/20 05:18 Temperature Pulse Rate 93 H Respiratory Rate Blood Pressure 118/68 O2 Sat by Pulse Oximetry - Exam Breasts: deferred Cardiovascular: Regular rate Lungs: Normal air movement Abdomen: Present: normal appearance, soft, normal bowel sounds. Absent: distention, tenderness Vulva: both: normal Uterus: Present: normal FHR: auscultation normal, category 1 Uterine Contraction Monitor Mode: External Uterine Contraction Pattern: Irregular Uterine Tone Measurement Phase: Resting Uterine Contraction Intensity: Mild Extremities: edema Deep Tendon Reflex Grade: Normal +2 - Labs Labs: Abnormal Labs 01/24/20 01/27/20 20:45 02:18 MCH 27 L RDW 17.1 H POC Glucose 63 L Laboratory Results - last 24 hr 01/26/20 01/26/20 01/27/20 12:52 19:00 02:18 POC Glucose 88 77 63 L
[2020-01-27] MEDS: LACTATED RINGERS 1,000 ML IV SCH ×2 (08:15→16:58)
--- NOTE | 2020-01-27 16:12 | Progress Note ---
Assessment and Plan - Patient Problems (1) 39 weeks gestation of Current Visit: Yes Status: Acute (2) GDM (gestational diabetes mellitus) Current Visit: Yes Status: Acute Qualifiers: Gestational diabetes mellitus control: diet-controlled Trimester: third trimester Qualified Code(s): O24.410 - Gestational diabetes mellitus in , diet controlled Plan to address problem: -IOL D#3 at this time with minimal cervical change on high dose pitocin today. Pt undecided as to whether she wants c/s for failed iol or if she would like to continue with the IOL. (see hpi for my discussion with this p) -if desires to continue serial IOL will allow pericare, dinner and some rest a few hours as well as for pt to ambulate if she desires. (3) IUGR (intrauterine growth restriction) affecting care of mother Current Visit: Yes Status: Acute Qualifiers: Fetus number: single or unspecified fetus Trimester: third trimester Qualified Code(s): O36.5930 - Maternal care for other known or suspected poor growth, third trimester, not applicable or unspecified (4) Morbidly obese Current Visit: Yes Status: Acute Subjective - Subjective Date of service: 01/27/20 Principal diagnosis: Day #3 IOL IUGR/GDM/MO 40w2d Interval history: Pt examined and exam is unchanged. I d/w c/s for failed IOL vs continuation with serial IOL. Pt is undecided at this time and states she will discuss with her family and then given provider her decision. I stressed that the baby has been doing well and she shows no s/sx of infection so if she desires to continue, cl inically she is stable enough to do so. She expressed understanding. Patient reports: movement normal, contractions Objective - Vital Signs Vital Signs: Vital Signs - 12hr 01/27/20 01/27/20 01/27/20 04:18 05:18 06:18 Temperature Pulse Rate 93 H 93 H 93 H Respiratory Rate Blood Pressure 133/67 118/68 127/85 O2 Sat by Pulse Oximetry 01/27/20 01/27/20 01/27/20 07:12 07:14 08:37 Temperature 98.1 F Pulse Rate 87 90 Respiratory 20 Rate Blood Pressure 120/67 123/64 O2 Sat by Pulse Oximetry 01/27/20 01/27/20 01/27/20 08:45 08:50 08:55 Temperature Pulse Rate 92 H 89 92 H Respiratory Rate Blood Pressure O2 Sat by Pulse 99 98 99 Oximetry 01/27/20 01/27/20 01/27/20 09:00 09:05 09:10 Temperature Pulse Rate 88 90 91 H Respiratory Rate Blood Pressure O2 Sat by Pulse 99 98 99 Oximetry 01/27/20 01/27/20 01/27/20 09:15 09:20 09:25 Temperature Pulse Rate 89 87 86 Respiratory Rate Blood Pressure O2 Sat by Pulse 99 99 99 Oximetry 01/27/20 01/27/20 01/27/20 09:30 09:35 09:40 Temperature Pulse Rate 88 87 90 Respiratory Rate Blood Pressure 109/64 O2 Sat by Pulse 99 98 99 Oximetry 01/27/20 01/27/20 01/27/20 09:45 09:50 09:55 Temperature Pulse Rate 91 H 88 82 Respiratory Rate Blood Pressure O2 Sat by Pulse 98 99 98 Oximetry 01/27/20 01/27/20 01/27/20 10:00 10:05 10:10 Temperature Pulse Rate 94 H 87 85 Respiratory Rate Blood Pressure O2 Sat by Pulse 98 98 98 Oximetry 01/27/20 01/27/20 01/27/20 10:24 10:29 10:34 Temperature Pulse Rate 93 H 85 87 Respiratory Rate Blood Pressure O2 Sat by Pulse 98 99 98 Oximetry 01/27/20 01/27/20 01/27/20 10:38 10:39 10:44 Temperature Pulse Rate 84 84 84 Respiratory Rate Blood Pressure 116/59 O2 Sat by Pulse 98 98 Oximetry 01/27/20 01/27/20 01/27/20 10:49 10:54 10:59 Temperature Pulse Rate 85 83 83 Respiratory Rate Blood Pressure O2 Sat by Pulse 98 99 98 Oximetry 01/27/20 01/27/20 01/27/20 11:04 11:09 11:14 Temperature Pulse Rate 81 81 89 Respiratory Rate Blood Pressure O2 Sat by Pulse 98 98 99 Oximetry 01/27/20 01/27/20 01/27/20 11:19 11:24 11:29 Temperature Pulse Rate 90 90 91 H Respiratory Rate Blood Pressure O2 Sat by Pulse 99 98 98 Oximetry 01/27/20 01/27/20 01/27/20 11:34 11:38 11:39 Temperature Pulse Rate 88 85 87 Respiratory Rate Blood Pressure 127/74 O2 Sat by Pulse 99 100 Oximetry 01/27/20 01/27/20 01/27/20 11:44 11:56 12:01 Temperature Pulse Rate 90 82 82 Respiratory Rate Blood Pressure O2 Sat by Pulse 99 99 99 Oximetry 01/27/20 01/27/20 01/27/20 12:06 12:11 12:16 Temperature Pulse Rate 88 89 93 H Respiratory Rate Blood Pressure O2 Sat by Pulse 99 99 99 Oximetry 01/27/20 01/27/20 01/27/20 12:21 12:26 12:31 Temperature Pulse Rate 90 87 88 Respiratory Rate Blood Pressure O2 Sat by Pulse 98 100 99 Oximetry 01/27/20 01/27/20 01/27/20 12:36 12:38 12:41 Temperature Pulse Rate 88 90 87 Respiratory Rate Blood Pressure 129/72 O2 Sat by Pulse 97 98 Oximetry 01/27/20 01/27/20 01/27/20 12:46 12:51 12:56 Temperature Pulse Rate 90 86 89 Respiratory Rate Blood Pressure O2 Sat by Pulse 97 98 100 Oximetry 01/27/20 01/27/20 01/27/20 13:01 13:06 13:11 Temperature Pulse Rate 86 88 87 Respiratory Rate Blood Pressure O2 Sat by Pulse 99 99 99 Oximetry 01/27/20 01/27/20 14:39 15:39 Temperature Pulse Rate 78 76 Respiratory Rate Blood Pressure 107/58 138/73 O2 Sat by Pulse Oximetry - Exam FHR: category 1 Cervical Dilatation: 2 (firm, post) Cervical Effacement Percentage: 50 station: -3 - Labs Labs: Abnormal Labs 01/24/20 01/27/20 20:45 02:18 MCH 27 L RDW 17.1 H POC Glucose 63 L Laboratory Results - last 24 hr 01/26/20 01/26/20 01/27/20 12:52 19:00 02:18 POC Glucose 88 77 63 L 01/27/20 01/27/20 08:25 15:14 POC Glucose 75 83
--- NOTE | 2020-01-27 17:35 | Event Note ---
Date: 01/27/20 Pt desires c/s for failed IOL at this time. All risk, benefits and alternatives were d/w pt and questions were addressed and answered. Consents signed and placed on the chart.
[2020-01-27] MEDS ORDERED: METOCLOPRAMIDE 10 MG/2 ML INJ IV ONE (17:39)
[2020-01-27] MEDS ORDERED: BICITRA ORAL LIQD 30ML PO ONE (17:39)
[2020-01-27] MEDS ORDERED: FAMOTIDINE 20 MG/2 ML INJ IV ONE (17:39)
[2020-01-27] MEDS ORDERED: ceFAZolin/Water 2 GM/20 ML 2 GM/20 ML SYRINGE IV ONE (17:57)
[2020-01-27] MEDS ORDERED: LACTATED RINGERS 1,000 ML IV SCH ×2 (18:00→22:31)
[2020-01-27] MEDS ORDERED: BUPIVACAINE /DEX-WATER 0.75% (2 ML) AMPULE INFILTRATI ONE (18:02)
[2020-01-27] MEDS ORDERED: DEXMEDETOMIDINE 200 MCG/2 ML VIAL IV ONE (18:02)
[2020-01-27] MEDS ORDERED: ONDANSETRON 4 MG/2 ML INJ ONE (18:02)
[2020-01-27] MEDS ORDERED: KETOROLAC 30 MG/1 ML INJ ONE (18:02)
--- NOTE | 2020-01-27 18:09 | Anesthesia Day of Surgery ---
Anesthesia Day of Surgery - Day of Surgery Patient Examined: Yes Patient H&P Reviewed: Yes Patient is NPO: Yes (h2o 1hr ago, last meal 7am) Beta Blockers: No Cardiac Clearance: No Pulmonary Clearance: No Guille's Test: N/A
[2020-01-27] MEDS ORDERED: HYDROmorphone 1 MG/1 ML INJ IV PRN (18:12)
[2020-01-27] MEDS ORDERED: ONDANSETRON 4 MG/2 ML INJ IV PRN ×2 (18:12→22:31)
[2020-01-27] MEDS ORDERED: NALOXONE 0.4 MG/1 ML INJ IV PRN ×2 (18:12→22:31)
--- NOTE | 2020-01-27 18:12 | Anesthesia Consultation ---
Anesthesia Consult and Med Hx Date of service: 01/27/20 - Airway Anesthetic Teeth Evaluation: Poor ROM Head & Neck: Adequate Mental/Hyoid Distance: Adequate Mallampati Class: Class III Intubation Access Assessment: Good - Pulmonary Exam CTA: Yes - Cardiac Exam Cardiac Exam: RRR - Pre-Operative Health Status ASA Pre-Surgery Classification: ASA3 Proposed Anesthetic Plan: Spinal - Pre-Anesthesia Comment Pre-Anesthesia Comments: PSH: EGD 2019. NO ANESTHESIA COMPLICATIONS - Pulmonary Hx Smoking: Yes (STOP 2019) Hx Asthma: No Hx Respiratory Symptoms: No SOB: No COPD: No Home Oxygen Therapy: No Hx Pneumonia: No Hx Sleep Apnea: No - Cardiovascular System Hx Hypertension: No Hx Coronary Artery Disease: No Hx Heart Attack/AMI: No Hx Angina: No Hx Percutaneous Transluminal Coronary Angioplasty (PTCA): No Hx Cardia Arrhythmia: No Hx Pacemaker: No Hx Internal Defibrillator: No Hx Valvular Heart Disease: No Hx Heart Murmur: No Hx Peripheral Vascular Disease: No - Central Nervous System Hx Neuromuscular Disorder: No Hx Seizures: No CVA: No Hx Back Pain: Yes Hx Psychiatric Problems: No - Gastrointestinal Hx Ulcer: Yes (2018) Hx Gastroesophageal Reflux Disease: Yes - Endocrine Hx Renal Disease: No Hx End Stage Renal Disease: No Hx Cirrhosis: No Hx Liver Disease: No Hx Insulin Dependent Diabetes: No Hx Non-Insulin Dependent Diabetes: Yes (GESTATIONAL) Hx Thyroid Disease: No Hx Hypothyroidism: No Hx Hyperthyroidism: No - Hematic Hx Anemia: No Hx Sickle Cell Disease: No - Other Systems Hx Alcohol Use: No Hx Substance Use: No Hx Cancer: No Hx Obesity: Yes (BMI 47.8)
[2020-01-27] MEDS ORDERED: SODIUM CHLORIDE 0.9% IRR 1,500 ML BOTTLE IR ONE (18:50)
[2020-01-27] MEDS ORDERED: WATER FOR IRRIG STERILE 1,500 ML BOTTLE IR ONE (18:50)
[2020-01-27] MEDS ORDERED: PHENYLEPHRINE/NS 1,000 MCG/10 ML SYRINGE (OR USE) IV ONE (19:00)
[2020-01-27] MEDS ORDERED: OXYTOCIN 10 UNIT/1 ML INJ ONE (19:07)
[2020-01-27] MEDS ORDERED: BUPIVACAINE/PF (0.5%) 5 MG/1 ML 30 ML VIAL INFILTRATI ONE (19:26)
--- NOTE | 2020-01-27 19:53 | Operative Report ---
Operative Report Operative Report: Date of procedure: 01/27/2020 Pre-operative diagnosis: 40 weeks gestation IUGR Morbid obesity Gestational diabetes diet-controlled Post-operative diagnosis: Same Procedure name(s): Primary low transverse section via Pfannenstiel skin incision Surgeon: Dr. Wright Glass Laminating Operator: Dr. Heidi Brooks Anesthesia: Spinal EBL: 900 mL Urine output: 100 mL of clear urine out at the end of the procedure Fluids: 1100 mL Findings: Liveborn male weight 6 pounds 15 ounces Apgars of 8 and 9 at 1 and 5 minutes Nuchal cord x1 easily reduced Grossly normal fallopian tubes and ovaries bilaterally Indications: Patient presented for induction of labor for gestational diabetes and intrauterine growth restriction at 39-6/7 weeks. Patient underwent induction for approximately 3-1/2 days with minimal cervical change patient was given ample opportunity to ask questions as well as other risks benefits and alternatives. Patient desired delivery via primary section. Consents were signed and placed on the chart. Procedure: Patient was taking to the operating room. Patient was then prepped and draped in sterile fashion after anesthesia was found to be adequate. A low transverse skin incision was made with the scalpel and carried down to the underlying layer of fascia with the Bovie. The fascia was then incised in the midline and this incision was extended bilaterally with the Bovie. The superior aspect of the fascia was grasped with Araseli clamps tented upward and dissected off of the anterior rectus muscles with the scalpel. In similar fashion the inferior aspect of the fascia was grasped with Araseli clamps tented upward and dissected off of the anterior rectus muscles. The rectus muscles were then bluntly divided in the midline. The peritoneum was identified and entered into sharply. The Deo retractor was placed the bladder blade was placed. The bladder flap was created using the Metzenbaum scissors. The bladder blade was replaced. A lower transverse uterine incision was made with the scalpel and extended bilaterally with the bandage scissors. Artificial rupture of membranes was performed yielding [clear amniotic fluid]. The 's head was then delivered atraumatically. The anterior shoulder and rest of infant delivered without difficulty. Nuchal cord was noted and easily reduced upon delivery of head. The umbilical cord was clamped x2. The cord was cut. The was then placed in sterile bassinet. [The cord blood was collected.] The placenta was manually extracted in its entirety. The uterus was exteriorized and cleared of all clots and debris. The uterine incision was closed using 0 Vicryl in a running locking fashion. A second imbricating layer of the same suture was then created. The posterior cul-de-sac was copiously irrigated. The uterus was returned to the abdomen. The gutters were also irrigated. Hemo- blast was placed along the uterine incision with excellent hemostasis noted. The anterior rectus muscles were reapproximated using 3-0 Vicryl. The anterior rectus fascia was reapproximated using 0 Vicryl in a running fashion. The subcuticular fat was reapproximated using 2-0 Vicryl in a running fashion. The skin was reapproximated with 4-0 Monocryl in a subcuticular stitch. The patient tolerated the procedure well. Sponge lap and needle counts were all correct x3. Patient was taken to the recovery room awake and in stable condition.
[2020-01-27] MEDS ORDERED: SIMETHICONE 80 MG CHEW TAB PO PRN (22:31)
[2020-01-27] MEDS ORDERED: MORPHINE 2 MG/1 ML INJ IV PRN (22:31)
[2020-01-27] MEDS ORDERED: MORPHINE 4 MG/1 ML INJ IV PRN (22:31)
[2020-01-27] MEDS ORDERED: OXYTOCIN 20 UNIT/1000ML DRIP 20 UNITS/1,000 ML BAG IV SCH (22:31)
[2020-01-27] MEDS ORDERED: WITCH HAZEL/ GLYCERIN PAD TP PRN (22:31)
[2020-01-27] MEDS ORDERED: LANOLIN/ZINC/DIMETHICONE (LANSINOH) 7 GM TP PRN (22:31)
[2020-01-27] MEDS ORDERED: PROMETHAZINE 25 MG RECT SUPP PR PRN (22:31)
[2020-01-27] MEDS: KETOROLAC 30 MG/1 ML INJ IV SCH (23:30)
[2020-01-27] MEDS: ACETAMINOPHEN 325 MG TAB PO SCH (23:32)
[2020-01-28] MEDS: HYDROcodone/ACETAMINOPHEN 5-325 MG TAB PO PRN ×2 (01:59→09:14)
[2020-01-28] MEDS ORDERED: KETOROLAC 30 MG/1 ML INJ IV SCH (03:30)
--- NOTE | 2020-01-28 05:57 | Post Anesthesia Evaluation ---
- Post Anesthesia Evaluation Patient Participated: Yes Airway Patent: Yes Stable Respiratory Function: Yes Nausea/Vomiting: No Temp > 96.8F: Yes Pain Manageable: Yes Adequeate Hydration: Yes Anesthesia Complications: No Block Receding Appropriately: Yes Patient on Ventilator: No
[2020-01-28] MEDS: KETOROLAC 30 MG/1 ML INJ IV SCH ×2 (06:46→15:00)
--- NOTE | 2020-01-28 08:03 | Progress Note ---
Assessment and Plan Pt sitting on edge of bed with the desire to ambulate with assistance. No visible s/s of distress. Rates pain 8/10 at this time. Just received pain medication within the last hour. Lozano just removed this AM and has not had first void. VSSAF. Post-op H/H pending and will be collected this morning. Incision ABD dressing intact with minimal shadowing seen at the bottom. RN will remove dressing today. Fundus firm at umbilicus. Scant vaginal bleeding. Attempting to breastfeed with formula supplementation. Desires circumcision. P: Continue PP pathway. Advance diet as tolerated. - Patient Problems (1) delivery due to maternal disorder, delivered, curr hospitaliz Current Visit: Yes Status: Acute Subjective - Subjective Date of service: 01/28/20 Principal diagnosis: 12 hrs s/p primary C/S d/t failed IOL Patient reports: appetite normal, flatus, other (Lozano just removed this am. Pt has not had first void or ambulation. Rates pain 8/10 at this time but just recieved pain medication within the last hour.) : doing well Objective - Vital Signs Latest vital signs: Vital Signs Temp Pulse Resp BP BP BP Pulse Ox 01/28/20 06:46 18 01/28/20 05:00 98.6 F 87 18 106/66 98 01/28/20 01:59 18 01/27/20 23:32 18 01/27/20 22:50 97.8 F 80 18 126/55 100 01/27/20 21:25 56 L 12 100/53 100 01/27/20 21:11 62 19 103/48 100 01/27/20 20:55 63 14 100/54 99 01/27/20 20:40 63 16 108/74 99 01/27/20 20:25 63 16 92/66 99 01/27/20 20:10 69 19 94/51 98 01/27/20 20:05 71 11 L 101/44 97 01/27/20 20:00 97.6 F 75 14 108/45 99 01/27/20 15:39 76 138/73 01/27/20 14:39 78 107/58 01/27/20 13:11 87 99 01/27/20 13:06 88 99 01/27/20 13:01 86 99 01/27/20 12:56 89 100 01/27/20 12:51 86 98 01/27/20 12:46 90 97 01/27/20 12:41 87 98 01/27/20 12:38 90 129/72 01/27/20 12:36 88 97 01/27/20 12:31 88 99 01/27/20 12:26 87 100 01/27/20 12:21 90 98 01/27/20 12:16 93 H 99 01/27/20 12:11 89 99 01/27/20 12:06 88 99 01/27/20 12:01 82 99 01/27/20 11:56 82 99 01/27/20 11:44 90 99 01/27/20 11:39 87 100 01/27/20 11:38 85 127/74 01/27/20 11:34 88 99 01/27/20 11:29 91 H 98 01/27/20 11:24 90 98 01/27/20 11:19 90 99 01/27/20 11:14 89 99 01/27/20 11:09 81 98 01/27/20 11:04 81 98 01/27/20 10:59 83 98 01/27/20 10:54 83 99 01/27/20 10:49 85 98 01/27/20 10:44 84 98 01/27/20 10:39 84 98 01/27/20 10:38 84 116/59 01/27/20 10:34 87 98 01/27/20 10:29 85 99 01/27/20 10:24 93 H 98 01/27/20 10:10 85 98 01/27/20 10:05 87 98 01/27/20 10:00 94 H 98 01/27/20 09:55 82 98 01/27/20 09:50 88 99 01/27/20 09:45 91 H 98 01/27/20 09:40 90 109/64 99 01/27/20 09:35 87 98 01/27/20 09:30 88 99 01/27/20 09:25 86 99 01/27/20 09:20 87 99 01/27/20 09:15 89 99 01/27/20 09:10 91 H 99 01/27/20 09:05 90 98 01/27/20 09:00 88 99 01/27/20 08:55 92 H 99 08/12/20 08:50 89 98 01/27/20 08:45 92 H 99 01/27/20 08:37 90 123/64 Intake and Output 01/27/20 01/28/20 01/28/20 22:59 06:59 14:59 Intake Total 2736.667 Output Total 350 600 Balance 2386.667 -600 Intake: IV 2736.667 Lactated Ringers 1,000 ml 1000 @ 125 mls/hr IV DIRECT KANA Rx#:[id number] PITOCin/NS 30 UNIT/500ML 86.667 30 units In 500 ml @ 1 mls/hr IV TITR KANA Rx#: [id number] Output: Urine 350 600 Uretheral (Lozano) 200 600 Other: # Voids Void 1 Estimated Blood Loss 900 - Exam Breasts: Present: deferred Cardiovascular: Present: Regular rate Lungs: Present: Normal air movement Abdomen: Present: normal appearance, soft, normal bowel sounds Uterus: Present: normal, firm, fundal height at umbilicus Extremities: Present: normal Deep Tendon Reflex Grade: Normal +2 Incision: Present: normal, dry, intact, dressed (Minimal shadowing seen at bottom of dressing)
[2020-01-28] MEDS: ACETAMINOPHEN 325 MG TAB PO SCH ×3 (09:13→23:30)
[2020-01-28] MEDS: PRENATAL VIT27-FE FUMARATE-FOLIC ACID VIT TAB PO SCH (09:15)
[2020-01-28 09:24] LABS: Hematocrit 29.4 % (30.3-42.9); Hemoglobin 9.6 gm/dl (10.1-14.3)
[2020-01-28] MEDS ORDERED: oxyCODONE /ACETAMINOPHEN 5-325MG TAB PO PRN (19:40)
[2020-01-28] MEDS ORDERED: DIPHtheria,PERTUSSIS(ACELL),TETANUS VACCINE/PF 0.5 ML VIAL IM ONE (19:42)
[2020-01-28] MEDS: IBUPROFEN 800 MG TAB PO PRN (23:22)
--- NOTE | 2020-01-29 07:48 | Discharge Summary ---
Providers - Providers Date of Admission: 01/24/20 20:06 Date of discharge: 01/29/20 (Pt has very strong desire to go home.) Attending physician: WILLIE ROBLERO 01/27/20 22:31 Consult to Photocopy Operator [CONS] Routine Reason For Exam: Primary care physician: WILLIE ROBLERO Hospitalization Reason for admission: active labor Delivery: Procedure: primary low transverse Episiotomy: none Laceration: none Incision: intact, dressed (Old dry drainage noted on dressing. To be removed today. Pt prefers that it be removed in the shower. ) Other procedures: none complications: none Discharge diagnosis: IUP at term delivered [place] baby: male Hospital course: S: Pt doing very well. Has a very strong desire to go home. Wants to go home by noon today. Ambulating, voiding, and passing flatus okay. BC: Condoms. O: VSS. Adequate I&O's. Fundus unable to palpate d/t maternal habitus, but there is minimal bleeding noted on peripad. H/H 9.6/29.4, post op anemia, asymptomatic. Dressing still intact, old dry drainage noted on dressing. A: 24 y.o. s/p d/t failed IOL. Doing well post op. POD # 2. Stable for discharge home. P: Discharge home with instructions. To schedule a incision check in the office in 1 week. To schedule a circumcision appointment in 1 week. Condition at discharge: Good Disposition: DC-01 TO HOME OR SELFCARE Plan - Discharge Medications Prescriptions: Docusate Sodium [Colace] 100 mg PO BID PRN #60 capsule PRN Reason: Constipation Lidocain2.5%/Prilocai2.5% [Emla] 2 gm TP ONCE #1 tube Ferrous Sulfate [Feosol 325 MG tab] 325 mg PO QDAY #60 tablet Ibuprofen [Motrin 800 MG tab] 800 mg PO Q8HR PRN #30 tablet PRN Reason: Pain, Moderate (4-6) oxyCODONE /ACETAMINOPHEN [Percocet 5/325] 1 tab PO Q4HR #30 tab - Provider Discharge Summary Activity: routine, no sex for 6 weeks, no heavy lifting 4 weeks, no strenuous exercise Diet: routine Instructions: routine Additional instructions: [] Smoking cessation referral if applicable(refer to patient education folder for contact #) [] Refer to [facility]'s [facility] Booklet Call your doctor immediately for: * Fever > 100.5 * Heavy vaginal bleeding ( >1 pad per hour) * Severe persistent headache * Shortness of breath * Reddened, hot, painful area to leg or breast * Drainage or odor from incision. * Keep incision clean and dry at all times and follow doctor's instructions regarding bathing/showering - Follow up plan Follow up: WILLIE ROBLERO MD [Primary Care Provider] - 7 Days (Congratulations!!! Please schedule an incision check in the office in 1 week. Please schedule your son's circumcision in the office in 1 week. You have been prescribed EMLA cream for your son's circumcision. Please do not use this cream at home, but bring it with you to your son's circumcision appointment. If you have any questions or concerns, please do not hesitate to call the office at [phone].)
[2020-01-29 08:36] VITALS: BP 131/89
[2020-01-29] MEDS: IBUPROFEN 800 MG TAB PO PRN (10:15)
[2020-01-29] MEDS: PRENATAL VIT27-FE FUMARATE-FOLIC ACID VIT TAB PO SCH (12:42)
== END 2020-01-29 13:50 | disposition home or self-care (01) | DRG 765 ==
LOC: LD 20:06 → OB 01-27 23:16
PROVIDERS: ADMIT Obstetrics & Gynecology; ATTEND Obstetrics & Gynecology
PROC: 3E0P7VZ Introduction of Hormone into Female Reproductive, Via Natural or Artificial Opening (ICD-10-PCS; 2020-01-26)
PROC: 10D00Z1 Extraction of Products of Conception, Low, Open Approach (ICD-10-PCS; principal; 2020-01-27)
PROC: 3E0234Z Introduction of Serum, Toxoid and Vaccine into Muscle, Percutaneous Approach (ICD-10-PCS; 2020-01-28)
DX: O24.410 Gestational diabetes mellitus in pregnancy, diet controlled (principal); O36.5930 Maternal care for other known or suspected poor fetal growth, third trimester, not applicable or unspecified; E66.01 Morbid (severe) obesity due to excess calories; Z37.0 Single live birth; O99.214 Obesity complicating childbirth; O61.9 Failed induction of labor, unspecified; O99.62 Diseases of the digestive system complicating childbirth; K21.9 Gastro-esophageal reflux disease without esophagitis; O69.81X0 Labor and delivery complicated by cord around neck, without compression, not applicable or unspecified; O90.81 Anemia of the puerperium; D64.9 Anemia, unspecified; Z87.891 Personal history of nicotine dependence; Z3A.40 40 weeks gestation of pregnancy; Z23 Encounter for immunization
CPT/HCPCS: 36415; 76815; 82962; 85014; 85018; 85027; 86850; 86900; 86901; 88307; G0378; J0290; J0690; J1885; J2370; J2405; J2590; J2765; J3490; J7120

== ENCOUNTER 2020-02-02 15:04 | Emergency (ER) | payer MEDICAID ==
[2020-02-02 15:30] VITALS: BP 148/91
--- NOTE | 2020-02-02 19:11 | Emergency Department Report ---
ED General Adult HPI - General Chief complaint: Neck Pain/Injury Stated complaint: POST NECK TICKING Time Seen by Provider: 02/02/20 19:04 Source: patient Mode of arrival: Ambulatory Limitations: No Limitations - History of Present Illness Initial comments: This is a 24-year-old female nontoxic, well nourished in appearance, no acute signs of distress presents to the ED with c/o of neck tingling sensation intermittently x1 week. Patient stated that she believes this is related to epidural that she received her lumbar spine for procedure. Patient otherwise denies any headache, stiff neck, nausea, vomiting, chest pain, shortness of breath, numbness or tingling. Patient that this is intermittently and last episode was earlier this morning. Patient otherwise denies any allergies or significant past medical history. Patient denies any trauma or injuries. -: week(s) Location: neck Severity scale (0 -10): 0 Consistency: intermittent, now resolved Improves with: none Worsens with: none Associated Symptoms: denies other symptoms. denies: confusion, chest pain, cough, diaphoresis, fever/chills, headaches, loss of appetite, malaise, nausea/vomiting, rash, seizure, shortness of breath, syncope, weakness Treatments Prior to Arrival: none - Related Data Previous Rx's Medication Instructions Recorded Last Taken Type ALBUTEROL NEB's [Proventil 0.083% 2.5 mg IH TID PRN #30 neb 02/20/18 Unknown Rx NEBS] Ibuprofen [Motrin 800 MG tab] 800 mg PO Q8HR #30 tablet 02/20/18 Unknown Rx predniSONE [Deltasone] 40 mg PO QDAY #10 tab 02/20/18 Unknown Rx Vit-Fe Fumar-FA [ 1 tab PO QDAY #45 tablet 06/12/19 Unknown Rx Vitamin] Docusate Sodium [Colace] 100 mg PO BID PRN #60 capsule 01/27/20 Unknown Rx Ferrous Sulfate [Feosol 325 MG tab] 325 mg PO QDAY #60 tablet 01/27/20 Unknown Rx Ibuprofen [Motrin 800 MG tab] 800 mg PO Q8HR PRN #30 tablet 01/27/20 Unknown Rx Lidocain2.5%/Prilocai2.5% [Emla] 2 gm TP ONCE #1 tube 01/27/20 Unknown Rx oxyCODONE /ACETAMINOPHEN [Percocet 1 tab PO Q4HR #30 tab 01/27/20 Unknown Rx 5/325] Allergies Allergy/AdvReac Type Severity Reaction Status Date / Time No Known Allergies Allergy Unverified 01/24/20 21:35 ED Review of Systems ROS: Stated complaint: POST NECK TICKING Other details as noted in HPI Constitutional: denies: chills, fever Eyes: denies: eye pain, eye discharge, vision change ENT: denies: ear pain, throat pain Respiratory: denies: cough, shortness of breath, wheezing Cardiovascular: denies: chest pain, palpitations Endocrine: no symptoms reported Gastrointestinal: denies: abdominal pain, nausea, diarrhea Genitourinary: denies: urgency, dysuria, discharge Musculoskeletal: denies: back pain, joint swelling, arthralgia Skin: denies: rash, lesions Neurological: denies: headache, weakness, paresthesias Psychiatric: denies: anxiety, depression Hematological/Lymphatic: denies: easy bleeding, easy bruising ED Past Medical Hx - Past Medical History Hx Hypertension: No Hx Heart Attack/AMI: No Hx Congestive Heart Failure: No Hx Diabetes: No Hx Deep Vein Thrombosis: No Hx GERD: Yes Hx Liver Disease: No Hx Renal Disease: No Hx Sickle Cell Disease: No Hx Seizures: No Hx Asthma: No Hx COPD: No Hx HIV: No - Surgical History Hx Pacemaker: No Hx Internal Defibrillator: No - Social History Smoking Status: Former Smoker - Medications Home Medications: Home Medications Medication Instructions Recorded Confirmed Last Taken Type ALBUTEROL NEB's [Proventil 0.083% 2.5 mg IH TID PRN #30 neb 02/20/18 01/27/20 Unknown Rx NEBS] Ibuprofen [Motrin 800 MG tab] 800 mg PO Q8HR #30 tablet 02/20/18 01/27/20 Unknown Rx predniSONE [Deltasone] 40 mg PO QDAY #10 tab 02/20/18 01/27/20 Unknown Rx Vit-Fe Fumar-FA [ 1 tab PO QDAY #45 tablet 06/12/19 01/27/20 Unknown Rx Vitamin] Docusate Sodium [Colace] 100 mg PO BID PRN #60 capsule 01/27/20 Unknown Rx Ferrous Sulfate [Feosol 325 MG tab] 325 mg PO QDAY #60 tablet 01/27/20 Unknown Rx Ibuprofen [Motrin 800 MG tab] 800 mg PO Q8HR PRN #30 tablet 01/27/20 Unknown Rx Lidocain2.5%/Prilocai2.5% [Emla] 2 gm TP ONCE #1 tube 01/27/20 Unknown Rx oxyCODONE /ACETAMINOPHEN [Percocet 1 tab PO Q4HR #30 tab 01/27/20 Unknown Rx 5/325] ED Physical Exam - General Limitations: No Limitations General appearance: alert, in no apparent distress - Head Head exam: Present: atraumatic, normocephalic - Eye Eye exam: Present: normal appearance, PERRL, EOMI - Neck Neck exam: Present: normal inspection, full ROM. Absent: tenderness, meningismus, lymphadenopathy - Respiratory Respiratory exam: Present: normal lung sounds bilaterally. Absent: respiratory distress, wheezes, rales, rhonchi, stridor, chest wall tenderness, accessory muscle use, decreased breath sounds, prolonged expiratory - Cardiovascular Cardiovascular Exam: Present: regular rate, normal rhythm, normal heart sounds. Absent: bradycardia, tachycardia, irregular rhythm, systolic murmur, diastolic murmur, rubs, gallop - Extremities Exam Extremities exam: Present: full ROM - Back Exam Back exam: Present: full ROM. Absent: tenderness, CVA tenderness (R), CVA tenderness (L), muscle spasm, paraspinal tenderness, vertebral tenderness, rash noted - Neurological Exam Neurological exam: Present: alert, oriented X3, normal gait - Psychiatric Psychiatric exam: Present: normal affect, normal mood - Skin Skin exam: Present: warm, dry, intact, normal color. Absent: rash ED Course Vital Signs 02/02/20 15:27 Temperature 98.1 F Pulse Rate 87 Respiratory 18 Rate Blood Pressure 148/91 O2 Sat by Pulse 98 Oximetry - Reevaluation(s) Reevaluation #1: 02/02/20 19:24 Patient is speaking in full sentences with no signs of distress noted. - Consultations Consultation #1: 02/02/20 19:24 Patient has been consulted with Dr. Amandeep V about patient history, physical exam, and patient can be discharge with outpatient follow-up. ED Medical Decision Making - Medical Decision Making 24-year-old female that presents with neck tremors intermittently. Patient is stable and was examined by me. Examination is unremarkable. I did consult with my attending and agrees to the discharge plan of care. Vital signs are stable. Patient was instructed to follow-up with a primary care doctor in 3-5 days or if symptoms worsen and continue return to emergency room as soon as possible. At time of discharge, the patient does not seem toxic or ill in appearance. No acute signs of distress noted. Patient agrees to discharge treatment plan of care. No further questions noted by the patient. Critical care attestation.: If time is entered above; I have spent that time in minutes in the direct care of this critically ill patient, excluding procedure time. ED Disposition Clinical Impression: Intermittent tremor Disposition: DC-01 TO HOME OR SELFCARE Is pt being admited?: No Does the pt Need Aspirin: No Condition: Stable Additional Instructions: Follow-up with a primary care doctor in 3-5 days or if symptoms worsen and continue return to emergency room as soon as possible. Referrals: EVAN ADORNO MD [Primary Care Provider] - 3-5 Days CHRISTIN QUINONES MD [Staff Physician] - 3-5 Days
== END 2020-02-03 00:45 | disposition home or self-care (01) ==
LOC: ED 15:04
DX: G25.2 Other specified forms of tremor (principal); Z87.891 Personal history of nicotine dependence; Z79.899 Other long term (current) drug therapy
CPT/HCPCS: 99282